=== PATIENT | male | born 1950 | race Caucasian/White ===

== ENCOUNTER 2016-09-05 08:59 | Emergency (ER) | payer MEDICARE, BC ==
[2016-09-05 09:23] LABS: BASOPHILS 0.7 % (0.0-2.0); EOSINOPHILS 4.9 % (0.0-6.0); EOSINOPHILS# 0.2 X 10^3uL (0.0-0.4); HEMATOCRIT 48.8 % (42.0-54.0); HEMOGLOBIN 16.5 g/dL (14.0-18.0); LYMPHOCYTES 10.7 % (20.0-40.0); LYMPHOCYTES# 0.5 X 10^3uL (0.8-3.8); MEAN CORPUS. HGB CONCENTRATION 33.8 g/dL (32.0-36.0); MEAN CORPUSCULAR HEMOGLOBIN 30.5 pg (29.0-35.0); MEAN PLATELET VOLUME 7.2 fL (7.4-10.4); MONOCYTES 11.2 % (2.0-10.0); MONOCYTES# 0.6 X 10^3uL (0.2-1.0); NEUTROPHILS 72.5 % (54.0-75.0); NEUTROPHILS# 3.8 X 10^3uL (2.6-6.7); PLATELET COUNT 264 X 10^3uL (130-440); RED BLOOD COUNT 5.43 X 10^6uL (4.20-6.10); RED CELL DISTRIBUTION WIDTH 12.9 % (11.5-14.5); WHITE BLOOD COUNT 5.1 X 10^3uL (3.9-10.7)
[2016-09-05 09:32] LABS: BLOOD UREA NITROGEN 14 mg/dL (9-20); CHLORIDE 104 mmol/L (98-107); EST GLOMERULAR FILTRATION RATE 46 mL/min; GLUCOSE 117 mg/dL (70-100); POTASSIUM 3.8 mmol/L (3.5-5.1); SODIUM 141 mmol/L (137-145)
--- NOTE | 2016-09-05 09:36 | RADIOLOGY REPORT ---
HISTORY: Chest pain. COMPARISON: None. FINDINGS: 2 views of the chest are obtained. The heart is mildly enlarged. Central vasculature appears plethori c. No focal lung opacity. No effusion or pneumothorax. Multilevel thoracic spondylosis. IMPRESSION: 1. Mild cardiomegaly with central vascular congestion. This could indicate early volume overload. Final Electronic Signature: This report was electronically signed by Jah Cohn MD on 09/05/2016 9:34 AM. ross /
[2016-09-05 09:47] LABS: TROPONIN I < 0.012 ng/mL (0.00-0.034)
--- NOTE | 2016-09-05 13:24 | ER NURSING DOCUMENTATION ---
Nurse's Notes [facility] Name:Santos Covarrubias Age:65 yrs Sex:Male :1950 Arrival Date:09/05/2016 Time:08:59 BedTrauma-C Private MD: Diagnosis:Dyspnea Presentation: 09/05 09:05 Acuity: TARYN 2 tg 09:25 Presenting complaint: Patient states: Minor chest pressure. Began a few days ago when tg arriving to [place]. Hiking the past few days has made it worse. Transition of care: patient was not received from another setting of care. AIR CAT ACTIVATION no. Asprin Given Given in ED. 09:25 Method Of Arrival: Private Vehicle tg Triage Assessment: 09:22 General: Appears in no apparent distress, Behavior is cooperative, pleasant. Pain: tg Complains of pain in mid-sternal area Quality of pain is described as pressure, Pain began 2-3 days ago Aggravated by exercise. Neuro: Level of Consciousness is awake, alert. Cardiovascular: Capillary refill < 3 seconds Rhythm is sinus rhythm. Respiratory: Respiratory effort is even, unlabored, Reports Pain in chest with deep resp. Derm: Skin is pink, warm & dry. Musculoskeletal:. Historical: - Allergies: No known drug Allergies; - Home Meds: 1. Lisinopril Oral 2. Doxycycline Oral 3. 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 - Ebola Screening: : Patient negative for fever greater than or equal to 101.5 degrees Fahrenheit, and additional compatible Ebola Virus Disease symptoms. Patient denies exposure to infectious person. Patient denies travel to an Ebola-affected area in the 21 days before illness onset. No symptoms or risks identified at this time. . - Immunization history: Flu Vaccine unknown. - Social history: Smoking status: Patient states was never smoker of tobacco. Screenin:24 Infectious Disease Risk Unable to Obtain. Abuse screen: Denies threats or abuse. Denies tg injuries from another. Nutritional screening: No deficits noted. Vital Signs: 09:13 BP 138 / 83 (auto/); tg 09:16 Pulse 65 MON; Resp 13; Pulse Ox 96% ; tg 09:18 BP 138 / 83; Pulse 62; Resp 14; Pulse Ox 96% on R/A; Weight 82.55 kg (R); Height 5 ft. tg 11 in. (180.34 cm) (R); Pain 2/10; 11:00 BP 118 / 84 (auto/); tg 11:01 Pulse 61 MON; Resp 15; Pulse Ox 95% ; tg 13:22 BP 145 / 67; Pulse 79; Resp 19; Pulse Ox 95% on R/A; bw2 09:18 Body Mass Index 25.38 (82.55 kg, 180.34 cm) tg ED Course: 08:58 EKG done. (by ED staff). Reviewed by Shadi Jarrett MD. tg 09:00 Patient arrived in ED. ama 09:05 Triage completed. tg 09:10 Inserted peripheral IV: 20 gauge in right antecubital area and blood collected. tg 09:13 Shadi Jarrett MD is Attending Physician. tl1 09:17 Herrera Hoover, RN is Primary Nurse. tg 09:24 Arm band placed on. tg 09:24 Valuables Remains with patient Placed in gown. Bed in low position. Call light in tg reach. Side rails up X 1. station cashier on. Pulse ox on. 09:28 EKG attached tg Administered Medications: 09:16 Drug: Aspirin 325 mg; Route: PO; tg 09:53 Follow up: Response: No adverse reaction tg Outcome: 13:05 Discharge ordered by . tl1 13:22 Discharged to home ambulatory, with significant other. bw2 13:22 Condition: good 13:22 Discharge Assessment: Patient awake, alert and oriented x 3. No cognitive and/or functional deficits noted. Patient verbalized understanding of disposition instructions. 13:22 Discharge instructions given to patient, Instructed on discharge instructions, follow up and referral plans. Demonstrated understanding of instructions. 13:23 Patient left the ED. bw2 07 08:16 Discharge F/U Call: Spoke with: patient. other: Name: pt states he is still SOB with st any exertion but he feels less pain today. Pt [place] and will be for a few more days. pt does have a fallow up with a chiropractic teacher next week. Pt was advised to seek care if it got worst and that getting to a lower altitude would be a good idea. Signatures: Herrera Hoover, RN Beth Chatman Antonio Baker RN, Reg Reg Shadi Eid MD MD tl1 Moira Tanhca [facility]2
--- NOTE | 2016-09-05 13:24 | ER PHYSICIAN DOCUMENTATION ---
Physician Documentation [facility] Name:Santos Covarrubias Age:65 yrs Sex:Male :1950 Arrival Date:09/05/2016 Time:08:59 BedTrauma-C Private MD: Shadi Champagne Disposition: 09/06 14:21 Critical Care: not applicable. Chart complete. tl1 Disposition: 09/05/16 13:05 Discharged to Home/Self Care. Impression: Dyspnea. - Condition is Good. - Discharge Instructions: DYSPNEA. - Medical Reconciliation form form. - Follow up: Private Physician; When: 4- 6 days; Reason: Recheck today's complaints, Continuance of care. - Problem is new. - Symptoms have improved. - Notes: CALL THE PULMONARY CLINIC TO ARRANGE FOLLOW UP FOR, HOPEFULLY, EARLY NEXT WEEK. . I SPOKE WITH DR EZIO STEEL WHO WILL TRY TO ARRANGE A CLINIC APPOINTMENT. CALL MAR[facility]EL FOR ANY DIFFICULTIES. HPI: 09:00 This 65 yrs old Male presents to ER via Private Vehicle with complaints of tl1 Chest Pain. 09:00 The patient or guardian reports chest pain that is located primarily in the substernal tl1 area. Onset: gradually, 3 hour(s) ago. The pain does not radiate. There has been no movement of pain. Associated signs and symptoms: Pertinent positives: shortness of breath, Pertinent negatives: cough, diaphoresis, dizziness, headache, lightheadedness, nausea, palpitations, vomiting. The chest pain is described as a pressure. Duration: The patient or guardian reports multiple episodes, that have now resolved. Since coming to he has had dyspnea on exertion and a vague chest tightness with exertion such as walking and mild dyspnea at rest. He denied fever, cough, LE pain or swelling or RF for DVT/PE. He and his sold their home last fall and have been travelling around the country in a motor home and are camping here just outside [place]. He has no h/o CAD or RF for same. He says he was diagnosed with Sarcoidosis in 2007, but never followed up with a line ordering clinician or anyone else, for that matter.. Historical: - Allergies: No known drug Allergies; - Home Meds: 1. Lisinopril Oral 2. Doxycycline Oral 3. 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 - Ebola Screening: : Patient negative for fever greater than or equal to 101.5 degrees Fahrenheit, and additional compatible Ebola Virus Disease symptoms. Patient denies exposure to infectious person. Patient denies travel to an Ebola-affected area in the 21 days before illness onset. No symptoms or risks identified at this time. . - Immunization history: Flu Vaccine unknown. - Social history: Smoking status: Patient states was never smoker of tobacco. ROS: 10:00 Cardiovascular: Positive for chest pain, Negative for edema, orthopnea, palpitations, tl1 paroxysmal nocturnal dyspnea. 10:00 All other systems are negative. Exam: 10:00 Constitutional: This is a well developed, well nourished patient who is awake, alert, tl1 and in no acute distress. 10:00 Head/face: Exam is negative for acute changes. 10:00 Eyes: Extraocular movements: intact throughout, Conjunctiva: normal. 10:00 ENT: Exam is negative for acute changes. 10:00 Neck: ROM/movement: is normal, is supple. 10:00 Cardiovascular: Rate: normal, Rhythm: regular, Heart sounds: normal, Edema: is not appreciated, JVD: is not appreciated. 10:00 Respiratory: the patient does not display signs of respiratory distress, Respirations: normal, Breath sounds: are normal, no decreased breath sounds, no rales, rhonchi, no stridor, no wheezing. 10:00 Abdomen/GI: Palpation: abdomen is soft and non-tender. 10:00 Musculoskeletal/extremity: Exam is negative for acute changes. 10:00 Skin: Exam negative for acute changes. 10:00 Neuro: Exam negative for acute changes. Vital Signs: 09/05 09:13 BP 138 / 83 (auto/); tg 09:16 Pulse 65 MON; Resp 13; Pulse Ox 96% ; tg 09:18 BP 138 / 83; Pulse 62; Resp 14; Pulse Ox 96% on R/A; Weight 82.55 kg (R); Height 5 ft. tg 11 in. (180.34 cm) (R); Pain 2/10; 11:00 BP 118 / 84 (auto/); tg 11:01 Pulse 61 MON; Resp 15; Pulse Ox 95% ; tg 13:22 BP 145 / 67; Pulse 79; Resp 19; Pulse Ox 95% on R/A; bw2 09:18 Body Mass Index 25.38 (82.55 kg, 180.34 cm) tg MDM: 09:13 Patient medically screened. tl1 09:28 EKG attached tg 12:00 Differential diagnosis: acute myocardial infarction, acute pericarditis, anxiety, tl1 coronary artery disease myocarditis, pericarditis, pneumonia, pulmonary embolus, stable angina, thoracic aortic disection. Patient took aspirin in the Emergency Department. The patient's pulmonary embolism risk score was calculated as follows: No Risks (0 Pts). [place] Risk Score: 1 - patient's age is greater or equal to 65 years, TOTAL SCORE = 1. Data reviewed: vital signs, nurses notes, lab test result(s), EKG, radiologic studies, plain films, and as a result, I will discharge patient. Data interpreted: cardiac monitor: Pulse oximetry:. Test interpretation: by ED physician or midlevel provider: ECG. Counseling: I had a detailed discussion with the patient and/or guardian regarding: the historical points, exam findings, and any diagnostic results supporting the discharge/admit diagnosis, lab results, radiology results, the need for outpatient follow up, to return to the emergency department if symptoms worsen or persist or if there are any questions or concerns that arise at home. ECG:. 12:00 Special discussion: He was asymptomatic in the ED with normal vital signs. I think he tl1 is at low risk from the standpoint of a potential ACS He may some HAPE, with his abnormal CXR, but there is no way to really know for sure without further testing; namely an echo, PFTs and perhaps a chest CT. His h/o sarcoidosis potentially could affect any or all of his organ systems, and is concerning and I think the person best suited to sorting this all out would be a line ordering clinician. I think he does not have anything terribly acute, requiring hospitalization, but I did tell him he should go down to the front range and see how he does. I have arranged for him to be seen in the Pulmonary Clinic at , in [place] next week. If his symptoms worsen or recur, he should go to the nearest ED for evaluation.. ED course: Rested comfortably with normal vital signs and no dyspnea or chest pain.+. 09/05 09:36 Order name: CBC AUTO DIF, MDIF/RMOR IF IND; Complete Time: 10:40 EDMS 09/05 10:39 Interpretation: Normal: WHITE BLOOD COUNT 5.1; HEMOGLOBIN 16.5; HEMATOCRIT 48.8; tl1 PLATELET COUNT 264. 09/05 09:40 Order name: DDIMER; Complete Time: 10:40 EDMS 09/05 10:39 Interpretation: Normal: DDIMER < 200. tl1 09/05 09:48 Order name: BASIC METABOLIC PANEL; Complete Time: 10:40 EDMS 09/05 10:39 Interpretation: SODIUM 141; POTASSIUM 3.8; CHLORIDE 104; CARBON DIOXIDE 25; GLUCOSE tl1 117; BLOOD UREA NITROGEN 14; CREATININE 1.6; CALCIUM 10.0. 09/05 09:48 Order name: BNP,NT-PRO; Complete Time: 10:40 EDMS 09/05 10:39 Interpretation: Normal: BNP,NT-PRO 109. tl1 09/05 09:48 Order name: TROPONIN I; Complete Time: 10:40 EDMS 09/05 10:39 Interpretation: Normal: TROPONIN I < 0.012. tl1 09/05 09:39 Order name: CXR 2V 48239; Complete Time: 10:40 EDMS 09/06 14:22 Interpretation: SEE RADIOLOGIST REPORT. Mild cardiomegaly with central vascular tl1 congestion. 09/05 09:14 Order name: 12-lead EKG; Complete Time: 09:16 tl1 09/05 09:14 Order name: Continuous Cardiac Monitoring; Complete Time: :16 tl1 09/05 09:14 Order name: I & O; Complete Time: 09:16 tl1 09/05 09:14 Order name: Iv Saline Lock; Complete Time: 09:16 tl1 09/05 09:14 Order name: Pulse Ox Continuous; Complete Time: :16 tl1 EC/15 08:59 Rate is 56 beats/min. QRS [place] is Normal. Right axis deviation noted. NV interval is tl1 normal at 150 msec. QRS interval is prolonged at 152 msec. QT interval is normal at 429 msec. No Q waves. T waves are Normal. No ST changes noted. Clinical impression: NSR with RBBB. No acute ischemic changes. Interpreted by me. Reviewed by me. Dispensed Medications: 09/05 09:16 Drug: Aspirin 325 mg; Route: PO; tg 09:53 Follow up: Response: No adverse reaction tg Signatures: Herrera Hoover RN RN tg Shadi Jarrett MD MD tl1 Sari Tan bw2
== END 2016-09-05 13:24 | disposition home or self-care (01) ==
LOC: ER 08:59
DX: R06.00 Dyspnea, unspecified (principal); R07.2 Precordial pain; Z86.2 Personal history of diseases of the blood and blood-forming organs and certain disorders involving the immune mechanism; I10 Essential (primary) hypertension; Z85.528 Personal history of other malignant neoplasm of kidney; Z90.5 Acquired absence of kidney; Z79.899 Other long term (current) drug therapy
CPT/HCPCS: 71020; 80048; 83880; 84484; 85025; 85379; 93005; 99284; 99285